=== PATIENT | female | born 1955 | race Caucasian/White ===

== ENCOUNTER 2020-03-11 16:20 | Emergency (ER) | payer OTHER ==
[~2020-03-11] VITALS: Ht 167.6 cm; Wt 127.6 kg
--- NOTE | 2020-03-11 16:35 | NUR ---
PT AMBULATED TO ROOM AT THIS TIME.
[2020-03-11] MEDS ORDERED: METO25TA35 PO (16:59)
[2020-03-11] MEDS ORDERED: METH500T7 PO (16:59)
[2020-03-11] MEDS ORDERED: GABA600T7 PO (16:59)
[2020-03-11] MEDS ORDERED: DULO30CA2 PO (16:59)
[2020-03-11] MEDS ORDERED: PANT40TA6 PO (16:59)
[2020-03-11] MEDS ORDERED: OXYB-39 PO (16:59)
[2020-03-11] MEDS ORDERED: LOSA100T14 PO (16:59)
--- NOTE | 2020-03-11 17:02 | NUR ---
THIS IS A 64 YO F W/ C/O SOB STATES "ELEPHANT ON CHEST" SINCE THIS MORNING AND LOSS OF VOICE X2 WEEKS. PT REPORTS WAS DX W/ LARYNGITIS X2 WEEKS AGO. PT REPORTS HX OF AFIB RESOLVED W/ ABLATION. PT COMPLIANT W/ MEDICATIONS AT HOME. PT NEW TO AREA AND DOES NOT HAVE ESTABLISED PRIMARY HERE. PT SITTING UP ON GURNEY W/ CALL LIGHT IN REACH AND SIDE RAIL UP. PT SPEAKS IN COMPLETE SENTENCES WHILE WHISPERING, NADN. RESP EVEN AND UNLABORED. AWAITING ED EVAL.
[2020-03-11 18:17] LABS: BASOPHILS % (AUTO) 0 % (0-1); EOSINOPHILS % (AUTO) 4 % (1-7); LYMPHOCYTES % (AUTO) 37 % (22-44); MEAN CORPUSCULAR HEMOGLOBIN 28.5 pg (27.0-34.8); MEAN CORPUSCULAR HGB CONC 32.7 g/dL (32.4-35.8); MEAN PLATELET VOLUME 7.9 fL (7.4-10.4); MONOCYTES % (AUTO) 8 % (2-9); NEUTROPHILS % (AUTO) 51 % (42-75); PLATELET COUNT 319 x10^3/uL (130-400); RED BLOOD COUNT 5.08 x10^6/uL (3.82-5.3); RED CELL DISTRIBUTION WIDTH 19.8 % (9.6-15.2)
[2020-03-11 18:27] LABS: ALBUMIN 3.5 g/dL (3.4-5.0); ANION GAP 5 mmol/L (5-15); CALCIUM 9.3 mg/dL (8.5-10.1); CHLORIDE 108 mmol/L (98-107)
[2020-03-11] MEDS ORDERED: SODIUM CHLORIDE FLUSH 10ML SYR IVF ONE (18:30)
[2020-03-11 18:32] LABS: ALANINE AMINOTRANSFERASE 32 U/L (12-78); ALKALINE PHOSPHATASE 92 U/L (45-117); BILIRUBIN,TOTAL 0.5 mg/dL (0.2-1.0); CREATININE 0.78 mg/dL (0.55-1.02); TOTAL PROTEIN 7.4 g/dL (6.4-8.2); TROPONIN I < 0.015 ng/mL (0.000-0.045)
--- NOTE | 2020-03-11 18:48 | NUR ---
PT SITTING UP ON GURNEY W/ CALL LIGHT IN REACH AND SIDE RAILS UP. RESP EVEN AND UNLABORED, RAZIAN. AWAITING LAB RESULTS.
--- NOTE | 2020-03-11 19:00 | NUR ---
REPORT RECIVED FROM EZEQUIEL ZEPEDA. PT SITTING ON SIDE OF [facility], NO NEEDS AT THIS TIME, AWAITING LABS FOR RECHECK
--- NOTE | 2020-03-11 19:05 | NUR ---
REPORT GIVEN TO JOMAR NIEVES. PT SITTING UP ON Mad Mimi W/ CALL LIGHT IN REACH AND SIDE RAIL UP. DONNA HERNANDEZ. AWAITNG LAB RESULTS.
[2020-03-11 19:08] LABS: MD SCAN
[2020-03-11 20:41] VITALS: BP 131/98
== END 2020-03-11 20:43 | disposition home or self-care (01) ==
LOC: ED 20:25
DX: J04.0 Acute laryngitis (principal); R07.89 Other chest pain; R00.0 Tachycardia, unspecified; B97.89 Other viral agents as the cause of diseases classified elsewhere
CPT/HCPCS: 36415; 71045; 80053; 83880; 84484; 85025; 93005; 99285

== ENCOUNTER 2020-04-21 14:58 | Emergency (ER) | payer OTHER ==
[~2020-04-21] VITALS: Ht 167.6 cm; Wt 125.0 kg
[~2020-04-21 14:58] MED LIST: DULO30CA2 PO; GABA600T7 PO; LOSA100T14 PO; METH-639 PO; METO25TA35 PO; OXYB-39 PO; PANT40TA6 PO
--- NOTE | 2020-04-21 14:58 | NUR ---
PT PREFERS TO BE CALLED "KENDY"
--- NOTE | 2020-04-21 14:58 | NUR ---
DEMAR FROM PCP (KARLEY PAULSON) C/O INCREASING SOB, FATIGUE, DIZZINESS W INTERMITTENT VA CHANGES (LIKE [place]) OVER 1 MO, MULT GLF D/T DIZZINESS- DENIES INJURY, HX AVR & COVID 11/2020, DX UTI TODAY; PIV, BG 108 SR. MEDIA MANAGER PER EMS- NO OTHER INTERVENTIONS; PT CHANGED INTO GOWN, AAOX4, MONITORS IN PLACE, COMFORT MEASURES PROVIDED, CALL LIGHT WITHIN REACH.
[2020-04-21] MEDS ORDERED: SODIUM CHLORIDE 0.9% 1,000ML IVBOLUS ONE (16:00)
[2020-04-21] MEDS ORDERED: SODIUM CHLORIDE FLUSH 10ML SYR IVF ONE (16:00)
--- NOTE | 2020-04-21 16:00 | NUR ---
PT UPRIGHT ON GURNEY AWAKE & COMFORTABLE, RESPONDS APPROP TO STAFF, NAD, COMFORT MEASURES PROVIDED, CALL LIGHT WITHIN REACH.
[2020-04-21 16:10] LABS: BASOPHILS % (AUTO) 1 % (0-1); EOSINOPHILS % (AUTO) 3 % (1-7); LYMPHOCYTES % (AUTO) 38 % (22-44); MEAN CORPUSCULAR HEMOGLOBIN 28.9 pg (27.0-34.8); MEAN PLATELET VOLUME 7.8 fL (7.4-10.4); MONOCYTES % (AUTO) 7 % (2-9); NEUTROPHILS % (AUTO) 51 % (42-75); PLATELET COUNT 278 x10^3/uL (130-400); RED BLOOD COUNT 4.75 x10^6/uL (3.82-5.3); RED CELL DISTRIBUTION WIDTH 16.4 % (9.6-15.2)
[2020-04-21 16:14] LABS: MD NO
[2020-04-21 16:17] LABS: ALBUMIN 3.2 g/dL (3.4-5.0); ANION GAP 8 mmol/L (5-15); CALCIUM 8.9 mg/dL (8.5-10.1); CHLORIDE 110 mmol/L (98-107); CREATININE 0.79 mg/dL (0.55-1.02)
[2020-04-21 16:21] LABS: TROPONIN I < 0.015 ng/mL (0.000-0.045)
--- NOTE | 2020-04-21 17:01 | NUR ---
PT REMAINS UPRIGHT ON GURNEY AWAKE & COMFORTABLE, TEXTING ON PHONE, RESPONDS APPROP TO STAFF, NAD, NO NEEDS AT THIS TIME, CALL LIGHT WITHIN REACH.
[2020-04-21 17:33] VITALS: BP 142/92
--- NOTE | 2020-04-21 17:42 | NUR ---
TASK RN: IV removed, catheter intact, hemostasis achieved, dressing applied. Pt agrees with and understands discharge plan and instructions.
== END 2020-04-21 17:49 | disposition home or self-care (01) ==
LOC: ED 17:43
DX: R06.00 Dyspnea, unspecified (principal); R42 Dizziness and giddiness; R53.83 Other fatigue; R00.0 Tachycardia, unspecified
CPT/HCPCS: 36415; 71045; 80048; 82040; 83880; 84484; 85025; 93005; 96360; 99285; J7030

== ENCOUNTER → 2020-05-05 | Outpatient (CLI) | payer OTHER | END | disposition home or self-care (01) | LOC: CVU 10:01 | PROVIDERS: ATTEND Internal Medicine Cardiovascular Disease | DX: R42 Dizziness and giddiness (principal); R06.02 Shortness of breath; I10 Essential (primary) hypertension | CPT/HCPCS: C8929; Q9957 ==

== ENCOUNTER → 2020-05-22 | Outpatient (CLI) | payer OTHER | END | disposition home or self-care (01) | LOC: RAD 11:55 | PROVIDERS: ATTEND Internal Medicine Cardiovascular Disease | DX: R06.02 Shortness of breath (principal) | CPT/HCPCS: 71045; 78582; A9540; A9558 ==

== ENCOUNTER 2020-11-13 14:39 | Emergency (ER) | payer OTHER ==
[~2020-11-13] VITALS: Ht 167.6 cm; Wt 127.2 kg
--- NOTE | 2020-11-13 15:05 | NUR ---
high rigger note: Pt to room from NINO li
--- NOTE | 2020-11-13 15:22 | NUR ---
BIB EMS FOR [facility] WITH NO LOC. PT DENIES ANY BLOOD THINNERS. DENIES ANY LIGHTHEADEDNESS OR DIZZINESS PRIOR TO EVENT. DIZZINESS AND NAUSEA SINCE EVENT. PT IN GOWN AND PLACED ON CARDIAC, NIBP, AND O2 MONITORING. FAMILY AT BEDSIDE
[2020-11-13] MEDS ORDERED: OXYcodone/APAP 10/325MG TABLET PO ONE (16:30)
[2020-11-13] MEDS ORDERED: OXYcodone/APAP 10/325MG TABLET ONE (16:41)
--- NOTE | 2020-11-13 16:45 | NUR ---
PT. RETURNS FROM RADIOLOGY AND WAS MEDICATED FOR PAIN ORDERED. PT. IS REQUESTING NAUSEA MEDICATION.
[2020-11-13] MEDS ORDERED: ONDANSETRON ODT 8 MG PO ONE (17:00)
[2020-11-13] MEDS ORDERED: ONDANSETRON ODT 8 MG ONE (17:06)
--- NOTE | 2020-11-13 17:10 | NUR ---
PT. WAS MEDICATED FOR NAUSEA. PT. REPORTS RELIEF FROM PAIN MEDS. VSS.
--- NOTE | 2020-11-13 17:46 | NUR ---
PT. WAS GIVEN DISCHARGE INSTRUCTIONS WITH UNDERSTANDING VERBALIZED ALONG WITH WILLINGNESS TO COMPLY. PT. WAS AMBULATORY TO THE DISCHARGE DESK.
[2020-11-13 17:47] VITALS: BP 108/68
== END 2020-11-13 18:19 | disposition home or self-care (01) ==
LOC: ED 18:01
DX: S00.33XA Contusion of nose, initial encounter (principal); S40.012A Contusion of left shoulder, initial encounter; Z87.891 Personal history of nicotine dependence; Z88.1 Allergy status to other antibiotic agents; W01.0XXA Fall on same level from slipping, tripping and stumbling without subsequent striking against object, initial encounter; Y93.89 Activity, other specified; Y92.009 Unspecified place in unspecified non-institutional (private) residence as the place of occurrence of the external cause; Y99.8 Other external cause status
CPT/HCPCS: 70160; 73000; 99284; Q0162